=== PATIENT | female | born 1970 | race Two or more races ===

== ENCOUNTER 2018-03-31 18:12 | Emergency (ER) | payer OTHER ==
[~2018-03-31] VITALS: Ht 165.1 cm; Wt 63.0 kg
== END 2018-03-31 22:59 | disposition home or self-care (01) ==
LOC: ER 18:12
DX: M25.571 Pain in right ankle and joints of right foot (principal)

== ENCOUNTER 2019-08-24 19:33 | Emergency (ER) | payer OTHER ==
[~2019-08-24] VITALS: Ht 165.1 cm; Wt 67.1 kg
[~2019-08-24 19:33] MED LIST: KETO10TA2 PO
[2019-08-24] MEDS ORDERED: MEDROLPACK PO (21:10)
[2019-08-24] MEDS ORDERED: CLARITIN10 MG PO (21:10)
[2019-08-24] MEDS ORDERED: TUSNEL LIQUID178 ML PO (21:10)
[2019-08-24] MEDS ORDERED: IPRAT-ALBUT 0.5-3 ML IH (21:10)
[2019-08-24] MEDS ORDERED: ZITHROMAX500 MG PO (21:10)
== END 2019-08-24 22:29 | disposition home or self-care (01) ==
LOC: ER 19:33
DX: J06.9 Acute upper respiratory infection, unspecified (principal)

== ENCOUNTER → 2019-10-12 | Outpatient (CLI) | payer OTHER ==
[~2019-10-12] MED LIST changes: +CLARITIN10 MG PO; +IPRAT-ALBUT 0.5-3 ML IH; +MEDROLPACK PO; +TUSNEL LIQUID178 ML PO; +ZITHROMAX500 MG PO
== END | disposition home or self-care (01) ==
LOC: RAD 12:30
DX: R06.09 Other forms of dyspnea (principal); R06.02 Shortness of breath